=== PATIENT | female | born 1985 | race Caucasian/White ===

== ENCOUNTER 2018-03-26 14:36 | Outpatient (CLI) | payer OTHER, MEDICAID ==
[2018-03-26 15:55] LABS: APPEARANCE,URINE CLEAR; BILIRUBIN,URINE NEGATIVE (NEGATIVE); COLOR,URINE STRAW; GLUCOSE, URINE NEGATIVE (NEGATIVE); KETONES,URINE NEGATIVE (NEGATIVE); LEUKOCYTE ESTERASE,URINE TRACE (NEGATIVE); NITRITE,URINE NEGATIVE (NEGATIVE); PROTEIN,URINE NEGATIVE (NEGATIVE); URINE SPECIFIC GRAVITY 1.004; UROBILINOGEN,URINE NEGATIVE mg/dL (<2.0)
[2018-03-26] MEDS ORDERED: HYDROXYZINE PAMOATE 50 MG CAPSULE PO ONE (15:56)
[2018-03-26] MEDS ORDERED: HYDROXYZINE PAMOATE 50 MG CAPSULE ONE (16:03)
[2018-03-26 16:35] LABS: URINE AMPHETAMINES SCREEN NEGATIVE; URINE BARBITURATES SCREEN NEGATIVE; URINE BENZODIAZEPINES SCREEN NEGATIVE; URINE COCAINE SCREEN NEGATIVE; URINE MARIJUANA (THC) SCREEN NEGATIVE; URINE METHADONE SCREEN NEGATIVE; URINE PHENCYCLIDINE SCREEN NEGATIVE
== END 2018-03-26 16:13 | disposition home or self-care (01) ==
LOC: LC 14:36
PROVIDERS: ATTEND Obstetrics & Gynecology
PROC: 4A1HXCZ Monitoring of Products of Conception, Cardiac Rate, External Approach (ICD-10-PCS; principal; 2018-03-26)
DX: O47.1 False labor at or after 37 completed weeks of gestation (principal); Z3A.39 39 weeks gestation of pregnancy
CPT/HCPCS: 59025; 80307; 81005

== ENCOUNTER 2018-04-04 07:16 | Outpatient (CLI) | payer OTHER, MEDICAID ==
[2018-04-04 08:26] LABS: APPEARANCE,URINE SLIGHTLY-CLOUDY; BILIRUBIN,URINE NEGATIVE (NEGATIVE); COLOR,URINE YELLOW; GLUCOSE, URINE NEGATIVE (NEGATIVE); KETONES,URINE NEGATIVE (NEGATIVE); LEUKOCYTE ESTERASE,URINE LARGE (NEGATIVE); NITRITE,URINE NEGATIVE (NEGATIVE); PROTEIN,URINE NEGATIVE (NEGATIVE); URINE SPECIFIC GRAVITY 1.014; UROBILINOGEN,URINE NEGATIVE mg/dL (<2.0)
[2018-04-04 08:39] LABS: URINE AMPHETAMINES SCREEN NEGATIVE; URINE BARBITURATES SCREEN NEGATIVE; URINE BENZODIAZEPINES SCREEN NEGATIVE; URINE COCAINE SCREEN NEGATIVE; URINE MARIJUANA (THC) SCREEN NEGATIVE; URINE METHADONE SCREEN NEGATIVE; URINE PHENCYCLIDINE SCREEN NEGATIVE
== END 2018-04-04 09:17 | disposition home or self-care (01) ==
LOC: LC 07:16
PROVIDERS: ATTEND Obstetrics & Gynecology Gynecology
DX: O47.1 False labor at or after 37 completed weeks of gestation (principal); O48.0 Post-term pregnancy; Z3A.40 40 weeks gestation of pregnancy
CPT/HCPCS: 59025; 80307; 81001

== ENCOUNTER 2018-04-05 22:26 | Outpatient (CLI) | payer OTHER, MEDICAID ==
[2018-04-05 23:09] LABS: APPEARANCE,URINE SLIGHTLY-CLOUDY; BILIRUBIN,URINE NEGATIVE (NEGATIVE); COLOR,URINE YELLOW; GLUCOSE, URINE NEGATIVE (NEGATIVE); KETONES,URINE NEGATIVE (NEGATIVE); LEUKOCYTE ESTERASE,URINE SMALL (NEGATIVE); NITRITE,URINE NEGATIVE (NEGATIVE); PROTEIN,URINE NEGATIVE (NEGATIVE); URINE SPECIFIC GRAVITY 1.009; UROBILINOGEN,URINE NEGATIVE mg/dL (<2.0)
[2018-04-05 23:31] LABS: URINE AMPHETAMINES SCREEN NEGATIVE; URINE BARBITURATES SCREEN NEGATIVE; URINE BENZODIAZEPINES SCREEN NEGATIVE; URINE COCAINE SCREEN NEGATIVE; URINE MARIJUANA (THC) SCREEN NEGATIVE; URINE METHADONE SCREEN NEGATIVE; URINE PHENCYCLIDINE SCREEN NEGATIVE
[2018-04-06] MEDS ORDERED: HYDROXYZINE PAMOATE 50 MG CAPSULE ONE (01:05)
== END 2018-04-06 01:12 | disposition home or self-care (01) ==
LOC: LC 22:26
PROVIDERS: ATTEND Obstetrics & Gynecology
PROC: 4A1HXCZ Monitoring of Products of Conception, Cardiac Rate, External Approach (ICD-10-PCS; principal; 2018-04-05)
DX: O48.0 Post-term pregnancy (principal); Z3A.40 40 weeks gestation of pregnancy
CPT/HCPCS: 59025; 80307; 81005

== ENCOUNTER 2018-04-06 04:47 | Inpatient (IN) | payer OTHER, MEDICAID ==
--- NOTE | 2018-04-06 04:51 | Non Stress Test Report ---
Non Stress Test Datetime Report Generated by CPN: 04/06/2018 04:50 DEMOGRAPHIC Test Number: 3 EGA NST: 40.6 EGA NST: 40.6 EGA NST: 39.3 INDICATION Indication for Study: Ordered by Provider Indication for Study: Ordered by Provider Indication for Study: Ordered by Provider Indication for Study (NST) Other: LC VITAL SIGNS Temperature - NST: 98.2 Pulse - NST: 83 RESP - NST: 16 NBPSYS NST: 115 NBPDIA NST: 59 URINE RESULTS Urine Protein, NST: Negative Urine Ketones - NST: Negative Urine Glucose - NST: Negative Urine Blood - NST: Negative MONITORING Monitor Explained: Monitor Explained; Test Explained; Patient Verbalized Understanding Monitor Explained: Monitor Explained; Test Explained; Patient Verbalized Understanding Monitor Explained: Monitor Explained; Test Explained; Patient Verbalized Understanding Time on Monitor: 04/05/2018 22:39 Time on Monitor: 04/05/2018 22:35 Time on Monitor: 03/26/2018 15:23 Time off Monitor: 04/06/2018 01:00 Time off Monitor: 04/06/2018 01:00 Time off Monitor: 03/26/2018 15:43 NST Duration: 141 NST Duration: 145 NST Duration: 20 NST INTERVENTIONS NST Interventions: PO Hydration; Reposition Patient NST Interventions: PO Hydration NST Interventions: PO Hydration; Reposition Patient Physician Notified NST: Dr. Weber Physician Notified NST: Bernardo Montez CNM Physician Notified NST: Dr. Hay BABY A: [id number] BABY A Movement : Present Movement : Present Movement : Present Contraction Frequency : 2.5-5 Contraction Frequency : 2.5-5 Contraction Frequency : rare FHR Baseline : 120 FHR Baseline : 120 FHR Baseline : 125 Accelerations : 15X15 Accelerations : 15X15 Accelerations : 15X15 Decelerations : None Decelerations : None Decelerations : None Variability : Moderate 6-25bpm Variability : Moderate 6-25bpm Variability : Moderate 6-25bpm NST Review: Meets Criteria for Reactive NST NST Review: Meets Criteria for Reactive NST NST Review: Meets Criteria for Reactive NST NST Review and Verified By : JASS Blevins NST Review and Verified By : Jero Neumann RN NST Review and Verified By : Teofilo Arias RN NST Results: Reactive NST Results: Reactive NST REPORT Report Trigger: Send Report
[2018-04-06] MEDS ORDERED: RINGERS SOLUTION,LACTATED 1,000 ML IV PRN (06:43)
[2018-04-06] MEDS ORDERED: VANCOMYCIN HCL INJ 1000 MG VIAL IV PRN (06:49)
[2018-04-06] MEDS ORDERED: RINGERS SOLUTION,LACTATED 1,000 ML IV ONE (06:50)
--- NOTE | 2018-04-06 06:53 | Admission Physical ---
Datetime Report Generated by CPN: 04/06/2018 06:53 CURRENT ADMISSION Chief Complaint: Uterine Contractions Indication for Induction: Not Applicable Admit Impression : Term, Intrauterine ; Active Labor Admit Plan: Admit to Unit; Initiate Labor Protocol; Initiate Labor Augmentation Protocol ALLERGIES Medication Allergies: Yes Medication Allergies: codeine/Hallucinations (04/05/2018); amoxicillin/SV/Anaphylaxis (03/26/2018) Latex: No Latex Allergies OBSTETRICAL HISTORY EDC: 03/30/2018 00:00 : 4 Para: 2 Term: 2 : 0 SAB: 0 IAB: 0 Ectopic: 0 Livin Cesareans: 0 VBACs: 0 Multiple Births: 0 Gestational Diabetes: No Rh Sensitization: No Incompetent Cervix: No CARLITO: No Infertility: No ART Treatment: No Uterine Anomaly: No IUGR: No Hx Previous C/S: No Macrosomia: No Hx Loss/Stillborn: No PIH: No Hx : No Placenta Previa/Abruption: No Depression/PP Depression: No Post Hemorrhage: No Current Procedures: Ultrasound; NST SEE RECORDS Alcohol: No Marijuana : No Cocaine: No Other Illicit Drugs: No Cigarettes: Never Smoker. [id number] MEDICAL HISTORY Diabetes: No Blood Transfusion: No Pulmonary Disease (Asthma, TB): No Breast Disease: No Hypertension: No Form Presser Surgery: No Heart Disease: No Hosp/Surgery: No Autoimmune Disorder: No Anesthetic Complications: No Kidney Disease: No Abnormal Pap Smear: No Neuro/Epilepsy: No Psychiatric Disorders: No Other Medical Diseases: No Hepatitis/Liver Disease: No Significant Family History: No Varicosities/Phlebitis: No Trauma/Violence : No Thyroid Dysfunction: No Medical History Comments: bilateral wrists pins/screws-implants, plate rods in left foot great toe, arthroscopic bilateral knee surgery INFECTIOUS HISTORY Gonorrhea: No Genital Herpes: No Chlamydia: No Tuberculosis: No Syphilis: No Hepatitis: No HIV/AIDS Exposure: No Rash or Viral Illness: No HPV: No PHYSICAL EXAM General: Normal HEENT: Normal Neurologic: Normal Thyroid: Normal Heart: Normal Lungs: Normal Breast: Normal Back: Normal Abdomen: Normal Genitourinary Exam: Normal Extremities: Normal DTRs: Normal Pelvic Type: Adequate Vital Signs: Reviewed; Within Normal Limits VAGINAL EXAM Dilatation: 5 Effacement: 75 Station: -2 MEMBRANES Pooling: Negative Membranes: Intact FETUS A EGA: 41.0 Monitoring: External US FHR- Baseline: 130 Variability: Moderate 6-25bpm Accelerations: 15X15 Decelerations: None FHR Category: Category I Estimated Weight (gm): 3700 Presentation: Vertex PLANS FOR LABOR AND DELIVERY Labor and Delivery: None Pain Management: Epidural Feeding Preference: Breast Benefit of Breast Feed Discussed: Yes Circumcision: N/A INFORMED CONSENT Signature: with User ID: [email or web address]
[2018-04-06] MEDS ORDERED: VANCOMYCIN HCL 1,000 MG in DEXTROSE 5%-WATER 250 ML IV ONE (07:00)
[2018-04-06] MEDS ORDERED: VANCOMYCIN HCL INJ 1000 MG VIAL ONE (07:12)
[2018-04-06 07:38] LABS: ABSOLUTE LYMPHOCYTES (AUTO) 3.3 10^3/uL (0.5-4.7); ABSOLUTE MONOCYTES (AUTO) 1.1 10^3/uL (0.1-1.4); BASOPHILS % (AUTO) 0.3 % (0-2); EOSINOPHILS % (AUTO) 0.3 % (0-6); HEMATOCRIT 39.3 % (36.0-47.0); HEMOGLOBIN 14.1 g/dL (12.0-15.5); MEAN CORPUSCULAR HGB CONC 35.9 g/dL (32.0-36.0); MEAN CORPUSCULAR VOLUME 92 fl (80-97); MONOCYTES % (AUTO) 7.6 % (3-13); PLATELET COUNT 144 10^3/uL (150-450); RED BLOOD COUNT 4.28 10^6/uL (3.72-5.28); RED CELL DISTRIBUTION WIDTH 13.1 % (11.5-14.0); SEGMENTED NEUTROPHILS % (AUTO) 68.8 % (42-78); TOTAL CELLS COUNTED % (AUTO) 100 %; WHITE BLOOD COUNT 14.5 10^3/uL (4.0-10.5)
[2018-04-06] MEDS ORDERED: BUPIVACAINE HCL 0.25 % INJ/PF (2.5 MG/1 ML) 30 ML VIAL ONE (08:19)
[2018-04-06] MEDS ORDERED: MISOPROSTOL 0.2 MG TABLET ONE (08:19)
[2018-04-06] MEDS ORDERED: LIDOCAINE 1% INJ-PF (10 MG/ML) 30 ML SDV ONE (08:19)
[2018-04-06] MEDS ORDERED: OXYTOCIN/NORMAL SALINE 20 UNIT/1,000 ML RTUINJ ONE (08:19)
[2018-04-06] MEDS ORDERED: EPHEDRINE SULFATE INJ 50 MG/1 ML AMPULE ONE (08:19)
[2018-04-06] MEDS ORDERED: FENTANYL/BUPIVACAINE/NS/PF 200 MCG/100 ML RTUINJ EPI ONE (08:21)
[2018-04-06] MEDS ORDERED: OXYTOCIN/NORMAL SALINE 20 UNIT/1,000 ML RTUINJ IV PRN ×2 (10:50→15:21)
[2018-04-06] MEDS ORDERED: ZOLPIDEM TARTRATE 5 MG TABLET PO PRN (15:21)
[2018-04-06] MEDS ORDERED: BENZOCAINE/MENTHOL AEROSOL SPRAY 56 ML TOP PRN (15:21)
[2018-04-06] MEDS ORDERED: MEASLES,MUMPS&RUBELLA VACC/PF 0.5 ML VIAL SUBCUT PRN (15:21)
[2018-04-06] MEDS ORDERED: DIBUCAINE 1% OINTMENT 28 GM TP PRN (15:21)
[2018-04-06] MEDS ORDERED: ACETAMINOPHEN WITH CODEINE #3 TABLET PO PRN (15:21)
[2018-04-06] MEDS ORDERED: DIPH/PERTUSS(ACELL)/TETANUS VAC/PF 0.5 ML SYR (>=10YO) IM PRN (15:21)
--- NOTE | 2018-04-06 15:32 | Warning Signs in Babies ---
VOD Warning Signs Datetime Report Generated by [facility]: 04/06/2018 15:20 VOD#[id number] -Warning Signs in Babies: Needs to be viewed. (03/26/2018 15:29:Angie Loredo RN)
--- NOTE | 2018-04-06 15:32 | Delivery Summary ---
Del Sum A-C Datetime Report Generated by CPN: 04/06/2018 15:21 DELIVERY PERSONNEL DELIVERY PERSONNEL: [id number] Delivery Doctor:: Felipa Penn CNM Labor and Delivery Nurse:: Angie Robbins RNtree surgeon helper Nurse:: Nyasia Hdz RN Fisher Purse Seine/MUTUEL TELLER: Kalee Weiss, INDUSTRIAL ENGINEERING ANALYST Additional Personnel: : Daniel Garcia RN MATERNAL INFORMATION Delivery Anesthesia: Epidural Medications After Delivery: Pitocin Bolus-Please Comment; Pitocin Drip 20 Units/1000ml NSS Maternal Complications: None Provider Comments: SVDVF over intact perineum. ERUM, shoulders and body delivered easily. vigorous, to mothers abd. Cord clamped x 2 cut per FOB. Placenta intact via elizalde. FF immediately. Mother and stable. LABOR SUMMARY EDC: 03/30/2018 00:00 No. Babies in Womb: 1 Attempted: No Labor Anesthesia: Epidural LABOR INFORMATION Reason for Induction: Post Dates Reason for Induction- Other: N/A Complete Dilatation: 04/06/2018 12:50 Oxytocin: Augmentation Group B Beta Strep: POSITIVE Antibiotics # of Doses: 1 Antibiotics Time of Last Dose: 728 Name of Antibiotic Given: VANCOMYCIN Steroids Given: None Reason Steroids Not Administered: Not Applicable MEMBRANES Membranes Rupture Method: Artificial Rupture of Membranes: 04/06/2018 09:59 Length of Rupture (hr): 2.98 Amniotic Fluid Color: Clear Amniotic Fluid Amount: Small STAGES OF LABOR Stage 2 hr: 0 Stage 2 min: 8 Stage 3 hr: 0 Stage 3 min: 4 VAGINAL DELIVERY Episiotomy: None Laceration #1: None Laceration Extension #1: N/A Other Laceration: SUPERFICIAL ABRASIONS Laceration Repair: Not Applicable Laceration Repair Note: none needed BABY A INFORMATION Infant Delivery Date/Time: 04/06/2018 12:58 Method of Delivery: Vaginal Born in Route : No : N/A Forceps: N/A Vacuum Extraction: N/A Shoulder Dystocia : No PRESENTATION/POSITION BABY A Presentation: Cephalic Cephalic Presentation: Vertex Vertex Position: Right Occipital Anterior Breech Presentation: N/A PLACENTA INFORMATION BABY A Placenta Delivery Time : 04/06/2018 13:02 Placenta Method of Delivery: Spontaneous Placenta Status: Delivered SCORES BABY A Heart Rate 1 min: >100 bpm Resp Effort 1 min: Good Cry Reflex Irritability 1 min: Cough or Sneeze or Pulls Away Muscle Tone 1 min: Active Motion Color 1 min: Blue/Pale Resuscitation Effort 1 min: Tactile Stimulation SCORE 1 MIN: 8 Heart Rate 5 min: >100 bpm Resp Effort 5 min: Good Cry Reflex Irritability 5 min: Cough or Sneeze or Pulls Away Muscle Tone 5 min: Active Motion Color 5 min: Body [place], Extremities Blue Resuscitation Effort 5 min: Tactile Stimulation SCORE 5 MIN: 9 INFORMATION BABY A Gestational Age at Delivery: 41.0 Gestational Status: Late Term- 41- 41.6 Weeks Infant Outcome : Liveborn Infant Condition : Stable Sex: Female IDENTIFICATION BABY A Verification Date/Time: 04/06/2018 13:16 ID Band Number: [id number] Mother's Name Verified: Yes Infant RN Verifying : Deion robbins RN/Devonte Lobito, RN WEIGHT/LENGTH BABY A Infant Birthweight (gm): 3170 Weight (lb): 7 Infant Weight (oz): 0 Infant Length (in): 20.00 Infant Length (cm): 50.80 CORD INFORMATION BABY A No. Cord Vessels: 3 Nuchal Cord : N/A Cord Blood Taken: Yes-For Eval (Mom's Blood Type - or O+) Suction: None ASSESSMENT BABY A Complications: None Physical Findings at Delivery: Within Normal Limits Respirations: Appears Normal Skin to Skin: Yes Skin to Skin Time (min): Infant in nursery Sales Planning Analyst/ALS Called : No Care By: Luis Eduardo GARCIA RN Transferred To: Remains with Mother BABY B INFORMATION : N/A SIGNATURES Assignment: Gregg Hampton MD Signature: with User ID: [email or web address] : with User ID: [email or web address] : I was personally available for consultation and serving as supervising physician for the P.
[2018-04-06] MEDS: IBUPROFEN 800 MG TABLET PO SCH (17:18)
[2018-04-06] MEDS: DOCUSATE SODIUM 100 MG CAPSULE PO SCH (17:18)
[2018-04-06] MEDS: FERROUS SULFATE 325 MG TABLET PO SCH (17:18)
[2018-04-06] MEDS ORDERED: VANCOMYCIN HCL 1,000 MG in DEXTROSE 5%-WATER 250 ML IV SCH (18:00)
[2018-04-07] MEDS: IBUPROFEN 800 MG TABLET PO SCH ×4 (05:25→21:54)
[2018-04-07 08:00] LABS: HEMATOCRIT 33.9 % (36.0-47.0); MEAN CORPUSCULAR HEMOGLOBIN 32.9 pg (27.0-33.4); MEAN CORPUSCULAR HGB CONC 35.3 g/dL (32.0-36.0); MEAN CORPUSCULAR VOLUME 93 fl (80-97); PLATELET COUNT 131 10^3/uL (150-450); RED BLOOD COUNT 3.63 10^6/uL (3.72-5.28); RED CELL DISTRIBUTION WIDTH 13.4 % (11.5-14.0); WHITE BLOOD COUNT 12.2 10^3/uL (4.0-10.5)
[2018-04-07] MEDS: DOCUSATE SODIUM 100 MG CAPSULE PO SCH ×2 (10:18→17:19)
[2018-04-07] MEDS: PRENATAL VITAMIN W DHA CAPSULE PO SCH (10:18)
[2018-04-07] MEDS: FERROUS SULFATE 325 MG TABLET PO SCH ×2 (10:18→17:19)
[2018-04-07] MEDS: SENNOSIDES/DOCUSATE 8.6-50 MG 1 EACH TABLET PO SCH (10:18)
--- NOTE | 2018-04-07 10:59 | PDOC PROGRESS REPORT ---
Subjective-OB Progress Note for:: 04/07/18 Subjective: Doing well, no c/o breatfeeding, voiding, ambulating Physical Exam (OB) Vital Signs: Temp Pulse Resp BP Pulse Ox 97.6 F 64 20 114/72 99 04/07/18 07:30 04/07/18 07:30 04/07/18 07:30 04/07/18 07:30 04/07/18 07:30 Intake & Output 04/06/18 04/07/18 04/08/18 06:59 06:59 06:59 Weight 111.6 kg - Lochia Lochia Amount: Small 10-25 ml Lochia Color: Rubra/Red - Abdomen Description: Soft Hernia Present: No Fundal Description: Firm, Midline Fundal Height: u/u - u/2 Objective-Diagnostic Laboratory: 04/07/18 07:19 04/07/18 07:19 WBC 12.2 H RBC 3.63 L Hgb 12.0 D Hct 33.9 L MCV 93 MCH 32.9 MCHC 35.3 RDW 13.4 Plt Count 131 L Assessment and Plan(PN) - Assessment and Plan (1) Vaginal delivery Is this a current diagnosis for this admission?: Yes - Time Spent with Patient Time with patient: Less than 15 minutes Medications reviewed and adjusted accordingly: Yes - Disposition Anticipated Discharge: Home Within: within 24 hours
[2018-04-08] MEDS: IBUPROFEN 800 MG TABLET PO SCH ×2 (06:01→14:27)
[2018-04-08 08:31] VITALS: BP 118/67
--- NOTE | 2018-04-08 10:38 | PDOC PROGRESS REPORT ---
Subjective-OB Progress Note for:: 04/08/18 Subjective: PP Day #2 today, doing well, no complaints, breast feeding, Physical Exam (OB) Vital Signs: Temp Pulse Resp BP Pulse Ox 97.9 F 60 18 118/67 98 04/08/18 08:04 04/08/18 08:04 04/08/18 08:04 04/08/18 08:04 04/08/18 08:04 Intake & Output 04/07/18 04/08/18 04/09/18 06:59 06:59 06:59 Intake Total 500 Balance 500 - General General Appearance: Appears well In distress: None - Lochia Lochia Amount: Small 10-25 ml Lochia Color: Rubra/Red - Abdomen Description: Soft, Round Hernia Present: No Fundal Description: Firm, Midline Fundal Height: u/u - u/2 - HEENT Head: Normocephalic Eyes: Normal - Respiratory Respiratory Status: No respiratory distress - Extremities Upper extremity: Normal inspection Lower extremities: Normal inspection - Neurological Cognition: Normal Orientation: AAOx4 - Psychological Associated symptoms: Normal affect, Normal mood Objective-Diagnostic Laboratory: 04/07/18 07:19 Assessment and Plan(PN) - Assessment and Plan (1) Vaginal delivery Is this a current diagnosis for this admission?: Yes Plan:: , plan for discharge today - Time Spent with Patient Time with patient: Less than 15 minutes Medications reviewed and adjusted accordingly: Yes - Disposition Anticipated Discharge: Home
--- NOTE | 2018-04-08 10:41 | PDOC DISCHARGE SUMMARY ---
Final Diagnosis Discharge Date: 04/08/18 - Final Diagnosis (1) Vaginal delivery Is this a current diagnosis for this admission?: Yes Discharge Data - Discharge Medication Prescriptions: Ibuprofen [Motrin 800 mg Tablet] 800 mg PO Q8 #30 tablet Home Medications: Ibuprofen [Motrin 800 mg Tablet] 800 mg PO Q8 #30 tablet 04/08/18 Reason(s) for Admission: Onset of Labor Procedures: Ultrasound Intrapartum Procedure(s): Spontaneous Vaginal Delivery - Diagnosis Test Laboratory: Temp Pulse Resp BP Pulse Ox 97.9 F 60 18 118/67 98 04/08/18 08:04 04/08/18 08:04 04/08/18 08:04 04/08/18 08:04 04/08/18 08:04 04/06/18 04/07/18 07:04 07:19 RBC 4.28 3.63 L Hgb 14.1 12.0 D Hct 39.3 33.9 L - Discharge information/Instructions Discharge Activity: Activity As Tolerated, No Lifting Over 10 Pounds Discharge Diet: As Tolerated, Regular Disposition: HOME, SELF-CARE Follow up with: [facility] in: 3, Weeks
[2018-04-08] MEDS: PRENATAL VITAMIN W DHA CAPSULE PO SCH (10:56)
[2018-04-08] MEDS: DOCUSATE SODIUM 100 MG CAPSULE PO SCH (10:57)
[2018-04-08] MEDS: FERROUS SULFATE 325 MG TABLET PO SCH (10:57)
[2018-04-08] MEDS: SENNOSIDES/DOCUSATE 8.6-50 MG 1 EACH TABLET PO SCH (10:57)
== END 2018-04-08 15:50 | disposition home or self-care (01) | DRG 775 ==
LOC: LC 04:47 → LR 06:47 → 2S 15:19
PROVIDERS: ADMIT Obstetrics & Gynecology; ATTEND Obstetrics & Gynecology
PROC: 10E0XZZ Delivery of Products of Conception, External Approach (ICD-10-PCS; principal; 2018-04-06)
PROC: 4A1HXCZ Monitoring of Products of Conception, Cardiac Rate, External Approach (ICD-10-PCS; 2018-04-06)
DX: O48.0 Post-term pregnancy (principal); O99.824 Streptococcus B carrier state complicating childbirth; O70.0 First degree perineal laceration during delivery; Z3A.41 41 weeks gestation of pregnancy; Z37.0 Single live birth; Z88.6 Allergy status to analgesic agent
CPT/HCPCS: 36415; 59025; 85025; 85027; 86592; 86850; 86900; 86901; 90715; J2590; J3370; J3490

== ENCOUNTER → 2018-10-26 | Outpatient (CLI) | payer OTHER ==
--- NOTE | 2018-10-26 14:56 | RADIOLOGY REPORT (SQ) ---
EXAM DESCRIPTION: KNEE RIGHT 4 VIEWS COMPLETED DATE/TIME: 10/26/2018 2:20 pm REASON FOR STUDY: PAIN IN RT KNEE M25.561 PAIN IN RIGHT KNEE COMPARISON: None. NUMBER OF VIEWS: Four views. TECHNIQUE: AP, lateral, and both oblique radiographic images acquired of the right knee. LIMITATIONS: None. FINDINGS: MINERALIZATION: Normal. BONES: No acute fracture or dislocation. No worrisome bone lesions. JOINT: No effusion. SOFT TISSUES: No soft tissue swelling. No radio-opaque foreign body. OTHER: No other significant finding. IMPRESSION: 1. NEGATIVE STUDY OF THE RIGHT KNEE. TECHNICAL DOCUMENTATION: JOB ID: [id number] [employer]- All Rights Reserved Reading location - IP/workstation name: [email or web address]
== END ==
LOC: OD 13:57
PROVIDERS: ATTEND Physician Assistant
DX: M25.561 Pain in right knee (principal)

== ENCOUNTER → 2020-04-01 | Outpatient (CLI) | payer OTHER ==
--- NOTE | 2020-04-01 12:25 | RADIOLOGY REPORT (SQ) ---
EXAM DESCRIPTION: LUMBAR SPINE COMPLETE IMAGES COMPLETED DATE/TIME: 04/01/2020 11:41 am REASON FOR STUDY: LUMBAR BACK PAIN M54.5 LOW BACK PAIN COMPARISON: None. NUMBER OF VIEWS: Five views including obliques. TECHNIQUE: AP, lateral, oblique, and sacral radiographic images acquired of the lumbar spine. LIMITATIONS: None. FINDINGS: MINERALIZATION: Normal. SEGMENTATION: Normal. No transitional anatomy. ALIGNMENT: Normal. VERTEBRAE: Maintained height. No fracture or worrisome bone lesion. DISCS: Preserved height. No significant osteophytes or end plate irregularity. POSTERIOR ELEMENTS: Pedicles and facets are intact. No pars defect or posterior arch defects. HARDWARE: None in the spine. PARASPINAL SOFT TISSUES: Normal. PELVIS: Intact as visualized. No fractures or worrisome bone lesions. SI joints intact. OTHER: No other significant finding. IMPRESSION: NORMAL 5 VIEW LUMBAR SPINE. TECHNICAL DOCUMENTATION: JOB ID: [id number] 2010 [employer]- All Rights Reserved Reading location - IP/workstation name: [email or web address]
== END ==
LOC: OD 11:23
PROVIDERS: ATTEND Physician Assistant
DX: M54.5 Low back pain (principal)
CPT/HCPCS: 72110

== ENCOUNTER 2020-04-22 07:38 | Emergency (ER) | payer OTHER ==
--- NOTE | 2020-04-22 08:57 | RADIOLOGY REPORT (SQ) ---
EXAM DESCRIPTION: ANKLE LEFT COMPLETE IMAGES COMPLETED DATE/TIME: 04/22/2020 8:41 am REASON FOR STUDY: fall injury COMPARISON: None. NUMBER OF VIEWS: Three views. TECHNIQUE: AP, lateral, and oblique radiographic images acquired of the left ankle. LIMITATIONS: None. FINDINGS: MINERALIZATION: Normal. BONES: No acute fracture or dislocation. No worrisome bone lesions. JOINTS: Small joint effusion. SOFT TISSUES: Mild soft tissue swelling laterally. OTHER: No other significant finding. IMPRESSION: No acute fracture dislocation. There is a small joint effusion. Minimal soft tissue sw elling laterally. TECHNICAL DOCUMENTATION: JOB ID: [id number] 2010 [employer]- All Rights Reserved Reading location - IP/workstation name: [email or web address]
[2020-04-22 09:40] VITALS: BP 125/69
--- NOTE | 2020-04-22 09:55 | ER Document Report ---
ED General - General Chief Complaint: Ankle Injury Stated Complaint: LEFT ANKLE PAIN,SWELLING Time Seen by Provider: 04/22/20 09:48 Primary Care Provider: NATE BLANK PA [Primary Care Provider] - Follow up as needed TRAVEL OUTSIDE OF THE [place] IN LAST 30 DAYS: No - HPI Notes: 35-year-old female presents with left ankle pain. Patient reports that last night she was walking to her house when she accidentally fell into a hole caused by an old tree stump. She states that she rolled her ankle. She had immediate pain and swelling. She states that she applied ice and elevated the leg. However today she continued to have pain and swelling therefore prompting evaluation. She states it feels like a pulling sensation in her leg and foot. She is able to ambulate by putting pressure on her heel. She has not taken any medications. - Related Data Allergies/Adverse Reactions: amoxicillin Allergy (Severe, Verified 03/26/18 15:14) Anaphylaxis codeine [Codeine] Allergy (Unknown, Verified 04/05/18 23:02) Hallucinations Past Medical History - Social History Smoking Status: Unknown if Ever Smoked Frequency of alcohol use: None Drug Abuse: None Family History: Reviewed & Not Pertinent - Immunizations Hx Diphtheria, Pertussis, Tetanus Vaccination: - 06/07/11 Review of Systems - Review of Systems Constitutional: No symptoms reported EENT: No symptoms reported Cardiovascular: No symptoms reported Respiratory: No symptoms reported Gastrointestinal: No symptoms reported Genitourinary: No symptoms reported, Discharge Musculoskeletal: Joint pain, Ankle swelling Skin: No symptoms reported Hematologic/Lymphatic: No symptoms reported Neurological/Psychological: denies: Weakness, Numbness Physical Exam - Vital signs Vitals: Temp Pulse Resp BP Pulse Ox 98.2 F 76 18 125/69 98 04/22/20 07:44 04/22/20 07:44 04/22/20 07:44 04/22/20 07:44 04/22/20 07:44 - General General appearance: Appears well In distress: None - HEENT Head: Normocephalic, Atraumatic Extraocular movements intact: Yes Pupils: PERRL - Respiratory Respiratory status: No respiratory distress - Cardiovascular Rhythm: Regular Pulses: Normal: Dorsalis pedis Normal capillary refill: Yes - Abdominal Inspection: Obese - Extremities Notes: There is swelling to the lateral left ankle with associated tenderness. Range of motion is intact to the ankle. She has mild tenderness to the midfoot. Able to wiggle toes. No tenderness over the left fibular head. No tenderness to the knee. Compartments of the lower leg are soft. - Neurological Neuro grossly intact: Yes Cognition: Normal Orientation: AAOx4 Notes: Motor and sensation intact to lower legs - Psychological Associated symptoms: Auditory hallucinations - Skin Skin Temperature: Warm Course - Re-evaluation Re-evalutation: 35-year-old female with left ankle injury. There is some swelling to the lateral aspect. The leg is mechanically stable with intact range of motion. She has mild tenderness over the lateral malleolus and mid forefoot. An x-ray was obtained from triage, ankle x-ray is negative for fracture. Will order a foot x-ray. There is no tenderness over the fibular head. Suspecting ankle sprain as cause. Motrin ordered for pain. 04/22/20 11:43 X-ray foot is negative for fracture. Patient was updated on results. An Florentino wrap and ankle stirrup splint were provided. Patient did not want crutches. Patient was advised to continue Motrin for pain. We discussed following up with her PCP in about a week if pain is still present as she might need MRI versus orthopedic referral. Return pre cautions were given, stable at time of discharge. - Vital Signs Vital signs: Temp Pulse Resp BP Pulse Ox 98.2 F 76 18 125/69 98 04/22/20 07:44 04/22/20 07:44 04/22/20 07:44 04/22/20 07:44 04/22/20 07:44 Discharge - Discharge Clinical Impression: Left ankle sprain Qualifiers: Encounter type: initial encounter Involved ligament of ankle: unspecified ligament Qualified Code(s): S93.402A - Sprain of unspecified ligament of left ankle, initial encounter Condition: Stable Disposition: HOME, SELF-CARE Instructions: Ankle Stirrup Splint ([facility]), Use of Crutches ([facility]) Additional Instructions: Continue to use stirrup splint and Florentino wrap. Use crutches until you are able to bear weight. Continue to use ibuprofen for pain. Follow-up with your primary care doctor as needed. Return to the emergency department for any concerning worsening symptoms. Prescriptions: Ibuprofen [Ibu] 800 mg PO Q8H #60 tablet Referrals: NATE BLANK PA [Primary Care Provider] - Follow up as needed
[2020-04-22] MEDS ORDERED: IBUPROFEN 800 MG TABLET PO ONE (10:11)
--- NOTE | 2020-04-22 11:12 | RADIOLOGY REPORT (SQ) ---
EXAM DESCRIPTION: FOOT LEFT COMPLETE IMAGES COMPLETED DATE/TIME: 04/22/2020 10:56 am REASON FOR STUDY: midfoot pain following fall COMPARISON: None. NUMBER OF VIEWS: Three views. TECHNIQUE: AP, lateral and oblique radiographic images acquired of the left foot. LIMITATIONS: None. FINDINGS: MINERALIZATION: Normal. BONES: No acute fracture or dislocation. Evidence of prior surgical intervention with cancellous scr ew at the distal 1st metatarsal. JOINTS: No effusions. SOFT TISSUES: No soft tissue swelling. No foreign body. OTHER: No other significant finding. IMPRESSION: 1. No evidence of acute bony abnormality. 2. Postsurgical change at the distal 1st metatarsal. TECHNICAL DOCUMENTATION: JOB ID: [id number] 2010 [employer]- All Rights Reserved Reading location - IP/workstation name: [email or web address]
== END 2020-04-22 11:57 | disposition home or self-care (01) ==
LOC: ER 07:38
DX: S93.402A Sprain of unspecified ligament of left ankle, initial encounter (principal); M25.572 Pain in left ankle and joints of left foot; M79.89 Other specified soft tissue disorders; R44.0 Auditory hallucinations; W17.2XXA Fall into hole, initial encounter; Z88.1 Allergy status to other antibiotic agents; Z88.8 Allergy status to other drugs, medicaments and biological substances
CPT/HCPCS: 99283

== ENCOUNTER → 2020-07-23 | Outpatient (CLI) | payer MEDICAID, OTHER ==
--- NOTE | 2020-07-23 16:31 | RADIOLOGY REPORT (SQ) ---
EXAM DESCRIPTION: U/S THYROID/SFT TISS HD NECK IMAGES COMPLETED DATE/TIME: 07/23/2020 1:15 pm REASON FOR STUDY: (E03.9)HYPOTHYROIDISM, UNSPECIFIED E03.9 HYPOTHYROIDISM, UNSPECIFIED COMPARISON: None. TECHNIQUE: Dynamic and static berry-scale images acquired of the thyroid gland. Selected additional c olor/power Doppler images recorded. All images stored to PACS. LIMITATIONS: None. FINDINGS: RIGHT LOBE: Normal size, 4.9 cm. Heterogeneous echotexture. Solid slightly hyperechoic w ell-defined nodule measures 14 x 12 by 10 mm. LEFT LOBE: Normal size, 4.4 cm. Heterogeneous echotexture. A solid slightly hyperechoic well-define d nodules. The larger measures 1.9 x 1.4 x 0.8 cm and contains a shadowing calcification. The small er measures 11 x 9 x 7 mm. ISTHMUS: Normal size, 4 mm. Heterogeneous echotexture. No cystic or solid masses. OTHER: The gland appears to be somewhat hypervascular. IMPRESSION: 1. The gland is within normal limits in size and is somewhat heterogeneous in echotextu re. Definable nodules are seen in each lobe. 2. The nodule on the right is TIRADS 3: Mildly Suspicious: FNA if = 2.5 cm; Follow if = 1.5 cm at 1, 3, and 5 y. 3. The nodules on the left are TIRADS 3: Mildly Suspicious: FNA if = 2.5 cm; Follow if = 1.5 cm at 1, 3, and 5 y. TECHNICAL DOCUMENTATION: JOB ID: [id number] 2010 [employer]- All Rights Reserved Reading location - IP/workstation name: [email or web address]
== END ==
LOC: RAD 12:42
PROVIDERS: ATTEND Physician Assistant
DX: E03.9 Hypothyroidism, unspecified (principal); E04.1 Nontoxic single thyroid nodule
CPT/HCPCS: 76536